=== PATIENT | female | born 1955 | race Caucasian/White ===

== ENCOUNTER 2017-09-26 15:02 | Emergency (ER) | payer BC, OTHER ==
[2017-09-26] MEDS ORDERED: ASPIRIN 81 MG CHEWABLE CTB ONE (15:07)
[2017-09-26] MEDS: SODIUM CHLORIDE 0.9% FLUSH 10 ML SOL IV PRN ×2 (15:18→16:43)
[2017-09-26] MEDS ORDERED: NITROGLYCERIN 0.4 MG TAB SL ONE (15:22)
[2017-09-26] MEDS: NITROGLYCERIN 0.4 MG TAB SL PRN ×2 (15:23→15:50)
[2017-09-26] MEDS ORDERED: LIDOCAINE HCL 2% (VISCOUS) 20 ML SOL MT ONE (15:31)
[2017-09-26] MEDS ORDERED: ALUMINUM/MAGNESIUM 30 ML SUS PO ONE (15:31)
[2017-09-26] MEDS ORDERED: ASPIRIN 81 MG CHEWABLE CTB PO STA (15:33)
[2017-09-26 15:34] LABS: HEMATOCRIT 37 % (35-47); HEMOGLOBIN 12.4 gm/dl (12.0-15.5); MEAN CORPUSCULAR HEMOGLOBIN 26.5 pg (27.0-32.0); MEAN CORPUSCULAR HGB CONC 33.5 gm/dl (32.0-36.0)
[2017-09-26 15:35] LABS: MEAN CORPUSCULAR VOLUME 79 fL (81-99)
[2017-09-26 15:37] LABS: BLOOD UREA NITROGEN 16 mg/dl (7-18); CALCIUM 10.7 mg/dl (8.5-10.1); CARBON DIOXIDE 27.1 mEq/L (21-32); CHLORIDE 106 mMol/L (98-107); CREATININE 1.06 mg/dl (0.60-1.00); GLOM FILT RATE 52 mL/min (>60); GLUCOSE 97 mg/dl (74-106); POTASSIUM 3.8 mMol/L (3.5-5.1); SODIUM 142 mMol/L (136-145); TROP I < 0.017 ng/ml (0.000-0.056)
[2017-09-26] MEDS ORDERED: ALUMINUM/MAGNESIUM 30 ML SUS ONE (15:44)
[2017-09-26] MEDS ORDERED: LIDOCAINE HCL 2% (VISCOUS) 20 ML SOL ONE (15:44)
[2017-09-26 15:46] LABS: BAND NEUTROPHILS % (MANUAL) 0 %; BASOPHILS % (MANUAL) 0 % (0-3); EOSINOPHILS % (MANUAL) 2 % (0-9); LYMPHOCYTES % (MANUAL) 26 % (10-50); MONOCYTES % (MANUAL) 4 % (0-12); NEUTROPHILS % (MANUAL) 68 % (37-80); NORMAL RBCS PRESENT
[2017-09-26 16:09] VITALS: TEMP 98.2
[2017-09-26] MEDS ORDERED: KETOROLAC TROMETHAMINE 30 MG/ML SOL IV ONE (16:20)
[2017-09-26] MEDS ORDERED: KETOROLAC TROMETHAMINE 30 MG/ML SOL ONE (16:34)
[2017-09-26 18:37] VITALS: BP 108/84; PULSE 87; RESP 19; O2SAT 96
== END 2017-09-26 18:00 | disposition home or self-care (01) | DRG 313 ==
LOC: ED 15:02
DX: R07.89 Other chest pain (principal); I10 Essential (primary) hypertension; R07.9 Chest pain, unspecified
CPT/HCPCS: 71045; 80048; 84484; 85007; 85027; 93005; 96374; 99284; 99285; J1885; A9270-GY